=== PATIENT | female | born 1955 | race Caucasian/White ===

== ENCOUNTER → 2017-02-25 | Outpatient (CLI) | payer BC ==
[~2017-02-25] MED LIST: LIDOCAINE 1%, 20ML ONE
[2017-02-25 14:48] LABS: CELLS COUNTED 11; DILUTION 1; WBC SQUARES COUNTED 18
== END | disposition home or self-care (01) ==
LOC: RAD 12:53
PROVIDERS: ATTEND Orthopaedic Surgery Adult Reconstructive Orthopaedic Surgery
DX: M25.552 Pain in left hip (principal); Z96.641 Presence of right artificial hip joint
CPT/HCPCS: 77002; 87070; 87205; 89051; 89060; J3490